=== PATIENT | female | born 1970 | race Caucasian/White ===

== ENCOUNTER 2020-01-19 22:47 | Emergency (ER) | payer MEDICAID ==
[~2020-01-19] VITALS: Ht 157.5 cm; Wt 63.5 kg
[2020-01-19 23:00] VITALS: BP 131/82
[2020-01-20 01:07] VITALS: BP 121/80
== END 2020-01-20 01:06 | disposition home or self-care (01) ==
LOC: MED 22:47
DX: S62.102A Fracture of unspecified carpal bone, left wrist, initial encounter for closed fracture (principal); S01.112A Laceration without foreign body of left eyelid and periocular area, initial encounter; W19.XXXA Unspecified fall, initial encounter; Y93.55 Activity, bike riding; Y92.89 Other specified places as the place of occurrence of the external cause; Y99.8 Other external cause status
CPT/HCPCS: 73110; 90471; 90715; 99283